=== PATIENT | male | born 1995 | race Caucasian/White ===

== ENCOUNTER 2018-07-06 21:13 | Emergency (ER) | payer SELFPAY ==
[~2018-07-06 21:13] MED LIST: ALBU17AE23 IH
--- OUTSIDE RECORDS SUMMARY | 2018-07-06 21:19 | XMS REPORT | Continuity of Care Document ---
Demographics Preferred Language Unknown Marital Status Unknown Religion Affiliation Unknown Race Unknown Ethnic Group Unknown Author Author [facility] Address Unknown Phone Unavailable Allergies There is no data. Medications There is no data. Problems Date Dx Coded Attending Type Code Diagnosis Diagnosed By 12/05/2008 380.10 INFECTIVE OTITIS EXTERNA UNSPECIFIED 02/07/2009 V70.3 SPORTS/SCHOOL EXAM Procedures There is no data. Results There is no data. Encounters ACCT No. Visit Date/Time Discharge Status Pt. Type Provider Facility Loc./Unit Complaint [id number] 02/07/2009 13:37:00 02/07/2009 23:59:59 CLS Outpatient [id number] 08/14/2012 10:06:29 RECURRING
--- NOTE | 2018-07-07 00:02 | NUR ---
PT NAME CALLED MULTIPLE TIMES AT 2345 WITH NO PRESENTATION. REGISTRATION NOTIFIED TO LET STAFF KNOW IF PT ARRIVED BACK TO WAITING ROOM/REGISTRATION DESK. BY 0002 PT NOT IN ER WAITING ROOM. DC'D LWBS.
== END 2018-07-07 00:02 | disposition left against medical advice (07) ==
LOC: EDUNIT# 21:13 → ER 21:15
DX: Z04.1 Encounter for examination and observation following transport accident (principal); V89.2XXA Person injured in unspecified motor-vehicle accident, traffic, initial encounter